=== PATIENT | female | born 1985 | race Caucasian/White ===

== ENCOUNTER 2017-11-07 08:13 | Emergency (ER) | payer BC ==
--- NOTE | 2017-11-07 09:05 | ED Physician Documentation ---
History of Present Illness - Stated complaint Stated Complaint: WOUND PACKING - Chief complaint Chief Complaint: Wound - Additonal information Additional information: hx from pt approx 2-3 weeks post s/p C section at [facility] had what sounds like a seroma and a small wound dehisc is packed and healing well pt needs packing changed while here on vacation she is otherwise well - no fever, no PISANO no swelling, breast feeding going well, bleeding has slowed etc Review of Systems Constitutional: denies: Fever Cardiac: denies: Chest pain / pressure Respiratory: denies: Dyspnea : denies: Now EGA Musculoskeletal: denies: Extremity swelling PD PAST MEDICAL HISTORY - Past Medical History Past Medical History: No - Past Surgical History 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 - Present Medications Home Medications: Ambulatory Orders Medication Instructions Recorded Confirmed Acetaminophen [Tylenol] 650 mg ORAL ONCE 11/07/17 11/07/17 Ibuprofen 600 mg PO ONCE 11/07/17 11/07/17 - Allergies Allergies/Adverse Reactions: Allergies Allergy/AdvReac Type Severity Reaction Status Date / Time No Known Drug Allergies Allergy Verified 11/07/17 08:24 - Social History Does the pt smoke?: No Smoking Status: Never smoker Does the pt drink ETOH?: No Does the pt have substance abuse?: No - Immunizations Immunizations are current?: Yes PD ED PE NORMAL - Vitals Vital signs reviewed: Yes - General General: Alert and oriented X 3 - Cardiac Cardiac: RRR - Respiratory Respiratory: No respiratory distress, Clear bilaterally - Abdomen Abdomen: Soft, Other (approx 1 inch small dehisc, fairly shallow, no pus, no surrounding erythema) Results - Vitals Vitals: Vital Signs - 24 hr 11/07/17 11/07/17 08:21 09:08 Temperature 36.5 C Heart Rate 65 Respiratory 18 Rate Blood Pressure 146/92 H 124/90 H O2 Saturation 99 Oxygen O2 Source Room air PD MEDICAL DECISION MAKING - ED course ED course: wound repacked s complication BP a little elevated for PP, no PISANO swelling etc to suggest pre-eclampsia and unlikely (though possible) this far PP - will recheck BP and if OK dc BP better - Sepsis Event Vital Signs: Vital Signs - 24 hr 11/07/17 11/07/17 08:21 09:08 Temperature 36.5 C Heart Rate 65 Respiratory 18 Rate Blood Pressure 146/92 H 124/90 H O2 Saturation 99 Oxygen O2 Source Room air Departure - Departure Disposition: 01 Home, Self Care Clinical Impression: Visit for wound check Condition: Good Comments: The wound is healing well. Return in 2 days for another packing Return sooner if worse in any way while you are on [place] for vacation
[2017-11-07 09:08] VITALS: BP 124/90
== END 2017-11-07 09:27 | disposition home or self-care (01) ==
LOC: ED 08:13
DX: O90.0 Disruption of cesarean delivery wound (principal)
CPT/HCPCS: 99282; 99283

== ENCOUNTER 2017-11-09 08:24 | Emergency (ER) | payer BC ==
[2017-11-09 08:45] VITALS: BP 128/87
--- NOTE | 2017-11-09 09:52 | ED Physician Documentation ---
PD HPI WOUND RECHECK - Stated complaint Stated Complaint: WOUND CHECK - Chief complaint Chief Complaint: Wound - Histroy obtained from History obtained from: Patient, Family - History of Present Illness Location: Abdomen Timing - onset: How many days ago (6) Associated symptoms: Drainage. No: Fever, Redness, Swelling Similar symptoms before: Diagnosis (seroma) Recently seen: Emergency Dept, Surgery - Additional information Additional information: 32-year-old female is 3 weeks and she has had a small seroma to the right side of her Pfannenstiel incision. This was initially treated with packing after opening it about 1 week ago she was seen in the emergency department 2 days ago and the packing was replaced. There was about 1 cm of packing placed into this wound. Patient is not having any erythema or fever she has only a small amount of discomfort right at the site of the opening of the wound. Review of Systems Constitutional: denies: Fever Nose: denies: Congestion Respiratory: denies: Cough GI: denies: Vomiting : denies: Dysuria Skin: reports: Laceration (s). 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 - Present Medications Home Medications: Ambulatory Orders Medication Instructions Recorded Confirmed Acetaminophen [Tylenol] 650 mg ORAL ONCE 11/07/17 11/07/17 Ibuprofen 600 mg PO ONCE 11/07/17 11/07/17 - Allergies Allergies/Adverse Reactions: Allergies Allergy/AdvReac Type Severity Reaction Status Date / Time No Known Drug Allergies Allergy Verified 11/07/17 08:24 - Social History Does the pt smoke?: No Smoking Status: Never smoker Does the pt drink ETOH?: No Does the pt have substance abuse?: No - Immunizations Immunizations are current?: Yes PD ED PE NORMAL - Vitals Vital signs reviewed: Yes (hypertensive mild ) - General General: Alert and oriented X 3, No acute distress, Well developed/nourished - HEENT HEENT: Atraumatic, PERRL, EOMI - Respiratory Respiratory: No respiratory distress - Abdomen Abdomen: Soft, Non tender, Other (there is a 1cm area of the pfannenstiel laterally on the right that is open to the surface without surrounding erythema and without significant drainage. There is mild tenderness and no fluctuance. The wound is shallow. ) - Derm Derm: Normal color, Warm and dry, No rash - Extremities Extremities: No deformity, No edema - Neuro Neuro: Alert and oriented X 3, No motor deficit, No sensory deficit, Normal speech Eye Opening: Spontaneous Motor: Obeys Commands Verbal: Oriented GCS Score: 15 - Psych Psych: Normal mood, Normal affect Results - Vitals Vitals: Vital Signs - 24 hr 11/09/17 08:41 Temperature 36.4 C L Heart Rate 69 Respiratory 16 Rate Blood Pressure 128/87 H O2 Saturation 98 Oxygen O2 Source Room air PD MEDICAL DECISION MAKING - ED course Complexity details: considered differential, d/w patient, d/w family ED course: 32-year-old female with a healing Pfannenstiel incision has had a small seroma that appears to be healing up well now we will forego replacement of any packing today. - Sepsis Event Vital Signs: Vital Signs - 24 hr 11/09/17 08:41 Temperature 36.4 C L Heart Rate 69 Respiratory 16 Rate Blood Pressure 128/87 H O2 Saturation 98 Oxygen O2 Source Room air Departure - Departure Disposition: 01 Home, Self Care Clinical Impression: Visit for wound check Instructions: ED Seroma Post Op Follow-Up: Your, doctor [Other] Comments: Today it appears the seroma to the incision is healing well and we are not replacing the packing today. Follow-up with your MECH[employer]IC [employer]INE [employer]INE doctor when you return home.
== END 2017-11-09 10:14 | disposition home or self-care (01) ==
LOC: ED 08:24
DX: O90.89 Other complications of the puerperium, not elsewhere classified (principal); Z48.01 Encounter for change or removal of surgical wound dressing
CPT/HCPCS: 99282